=== PATIENT | male | born 1955 | race Caucasian/White ===

== ENCOUNTER 2018-05-13 14:02 | Emergency (ER) | payer OTHER, MEDICARE ==
[~2018-05-13] VITALS: Ht 195.6 cm; Wt 106.6 kg
[2018-05-13] MEDS ORDERED: OMEPRAZOLE 20 M20 M1 PO (14:19)
[2018-05-13 14:39] LABS: ABSOLUTE BASOPHILS 0.1 thou/uL (0.0-0.2); ABSOLUTE EOSINOPHILS 0.2 thou/uL (0.0-0.7); ABSOLUTE LYMPHOCYTES 1.5 thou/uL (0.8-5.3); ABSOLUTE MONOCYTES 0.6 thou/uL (0.0-1.2); ABSOLUTE NEUTROPHILS 7.1 thou/uL (1.6-8.1); BASOPHILS 0.9 %; EOSINOPHILS 1.9 %; HEMATOCRIT 45.6 % (42.0-52.0); HEMOGLOBIN 15.6 gm/dL (14.0-18.0); LYMPHOCYTES 15.5 %; MCH 29.7 pg (26.0-34.0); MCHC 34.2 g/dL (28.0-37.0); MCV 86.7 fL (80.0-100.0); MONOCYTES 6.4 %; MPV 8.6 fl. (7.2-11.1); NUCLEATED RBCS 0 /100WBC; PLATELET COUNT* 191 thou/uL (150-400); POLYS 75.3 %; RBC 5.26 mil/uL (4.50-6.00); RDW-CV 13.3 % (10.5-14.5); WBC 9.4 thou/uL (4.0-11.0)
[2018-05-13 14:48] LABS: ANION GAP 11 mmol/L (7-16); BUN 26 mg/dL (7-18); CHLORIDE 98 mmol/L (98-107); CO2 27 mmol/L (21-32); CREATININE 1.5 mg/dL (0.6-1.3); GLUCOSE 107 mg/dL (70-99); POTASSIUM 3.7 mmol/L (3.5-5.1); SODIUM 136 mmol/L (136-145)
[2018-05-13 14:58] LABS: ALBUMIN 4.3 g/dL (3.4-5.0); ALKALINE PHOSPHATASE 85 U/L (46-116); LIPASE 704 U/L (73-393); NT-PRO BRAIN NAT PEPTIDE 14 pg/mL (<300); SGOT 30 U/L (15-37); SGPT 43 U/L (30-65); TOTAL BILIRUBIN 0.7 mg/dL (<0.1-1.0); TOTAL PROTEIN 7.8 g/dL (6.4-8.2); TROPONIN-I LEVEL <0.06 ng/mL (<0.06)
[2018-05-13 15:18] LABS: URINE CLARITY CLEAR; URINE COLOR YELLOW; URINE GLUCOSE-RANDOM NEGATIVE (Negative)
[2018-05-13 15:19] LABS: URINE BILIRUBIN NEGATIVE (Negative); URINE BLOOD NEGATIVE (Negative); URINE KETONES NEGATIVE (Negative); URINE NITRITE-REFLEX NEGATIVE (Negative); URINE PROTEIN NEGATIVE (Negative)
[2018-05-13 15:20] LABS: URINE LEUKOCYTES-REFLEX NEGATIVE (Negative); URINE UROBILINOGEN 0.2 E.U./dl (0.2-1.0)
[2018-05-13 16:25] LABS: INFLUENZA A ANTIGEN None Detected (None Detect); INFLUENZA B ANTIGEN None Detected (None Detect)
[2018-05-13] MEDS ORDERED: ZOFRAN4 MG PO (16:31)
[2018-05-13] MEDS ORDERED: BENTYL 20 MG TA20 M1 PO (16:31)
[2018-05-13 16:40] VITALS: BP 107/73
--- NOTE | 2018-05-13 16:40 | EKG ---
[place] [address] ELECTROCARDIOGRAM REPORT Name: PATRICIA BLUE Room: [facility]#: [id number] Admission: 05/13/18 Attend Phys: Discharge: Date of : 51 Report #: [id number] THIS REPORT FOR: //name// [facility] ED Test Date: 2018-05-13 Test Time: 14:45:54 Pat Name: PATRICIA BLUE Department: Room: Gender: Manager Code: Leigh REN : 1955 Requested By: Yesenia Montilla Order Number: [id number] MD: Prudencio Ruelas Measurements Intervals [place] Rate: 72 P: 71 WV: 191 QRS: 42 QRSD: 94 T: 43 QT: 369 QTc: 404 Interpretive Statements Sinus rhythm Early repolarization Baseline wander in lead(s) I,III,aVR,aVL No previous ECG available for comparison Electronically Signed On 05-13-2018 16:40:03 [employer] by Prudencio Ruelas [email or web address] <ELECTRONICALLY SIGNED> By: Prudencio Ruelas MD, [facility] 05/13/18 1640 1445 1445 Prudencio Ruelas MD, FACC /EPI
== END 2018-05-13 16:40 | disposition home or self-care (01) ==
LOC: M.ERS 14:02
PROVIDERS: Nurse Practitioner
DX: K85.90 Acute pancreatitis without necrosis or infection, unspecified (principal); R19.7 Diarrhea, unspecified; K21.9 Gastro-esophageal reflux disease without esophagitis; Z88.8 Allergy status to other drugs, medicaments and biological substances